=== PATIENT | male | born 1985 | race Caucasian/White ===

== ENCOUNTER 2024-06-20 08:29 | Outpatient (CLI) | payer BC ==
[2024-06-20 09:56] LABS: #Basophils 0.05 10x3/uL (0.0-0.2); %Basophils 0.6 % (0.0-1.0); %Eosinophils 3.4 % (0.0-10.0); %Lymphocytes 27.9 % (21.0-51.0); %Monocytes 7.9 % (0.0-10.0); %Neutrophils 59.9 % (42.0-75.0); Hematocrit 44.9 % (42.0-52.0); Hemoglobin 14.8 g/dL (14.0-18.0); Mean Corpuscular Hemoglobin 28.3 pg (27.0-31.0); Mean Corpuscular Volume 85.9 fL (78.0-98.0); Mean Platelet Volume 11.7 fL (7.4-10.4); Platelet Count 254 10x3/uL (130-400); RBC Distribution Width 13.3 % (11.5-14.5); Red Blood Cell (RBC) Count 5.23 mill/uL (4.70-6.10)
[2024-06-20 10:12] LABS: Anion Gap 9 mmol/L (10-20); BUN (Urea Nitrogen) 12 mg/dL (8.9-20.6); Calc. Creatinine Clearance 0 mL/min (70-130); Calcium 9.1 mg/dL (7.8-10.44); Carbon Dioxide 26 mmol/L (22-29); Chloride 104 mmol/L (98-107); Estimated GFR 111; Glucose 103 mg/dL (70-105); Potassium 4.2 mmol/L (3.5-5.1); Sodium 135 mmol/L (136-145)
== END 2024-06-20 08:30 | disposition home or self-care (01) ==
LOC: LABBT 08:29
PROVIDERS: ATTEND Orthopaedic Surgery
DX: Z01.818 Encounter for other preprocedural examination (principal); M65.931 Unspecified synovitis and tenosynovitis, right forearm
CPT/HCPCS: 80048; 85025; 93005; 93010